=== PATIENT | male | born 1940 | race Caucasian/White ===

== ENCOUNTER 2020-12-17 08:15 | Observation (INO) | payer MEDICARE, OTHER, SELFPAY ==
[2020-12-16] VITALS (10 sets, daily range): BP systolic 122–136; BP diastolic 56–69; PULSE 70–78; RESP 12–16; TEMP 36.1–37.3; O2SAT 96–99; BMI 24.7
--- NOTE | 2020-12-16 12:29 | PM.PREOP ---
Pre-operative Note COVID-19 COVID-19 status: Negative Interval Note History & Physical reviewed/Exam performed by Physician: Yes Changes to H&P: No
[2020-12-16] MEDS: ACETAMINOPHEN 325 MG TABLET 975 MG PO (13:32)
[2020-12-16] MEDS: CELECOXIB 200 MG CAPSULE PO (13:33)
[2020-12-16 13:40] LABS: COVID19 -Nasal RAPID Negative (Negative)
[2020-12-16] MEDS: LACTATED RINGERS 1,000 ML 42 ML IV ×2 (14:10→18:03)
[2020-12-16] MEDS: VANCOMYCIN 1,000 MG/200 ML PIGGYBACK 200 MG IV (14:55)
--- NOTE | 2020-12-16 15:54 | PM.OP.1 ---
Operative Date/Time/Diagnoses Date of procedure: 12/16/20 Time of procedure: 15:55 Pre-op diagnosis: left total knee arthroplasty Post-op diagnosis: same Procedure & Clinicians Procedure: left total knee arthroplasty Same procedure as scheduled: Yes Indications: The patient has had progressively worsening left knee pain with radiographic changes consistent with arthritis. Non-operative management has failed and the patient has requested total knee replacement. The risks, benefits and alternatives to surgery were discussed with the patient prior to proceeding. Risks discussed included, but were not limited to, failure to relieve pain, stiffness, infection, nerve damage, deep venous thrombosis, pulmonary embolism, stroke, coma, heart attack, permanent paralysis and , as well as the potential need for eventual revision of the prosthetic. Surgeon: Kiley Gates Bench Lay Out Technician: Felix Welch Anesthesia Type: General and Spinal Operative Notes Findings: severe left knee osteoarthritis, good stability Closure Type: primary Specimen(s): none sent Prosthetic devices, grafts, tissues, transplants, or devices: [facility] 2 size 8 femur, size 7 tibia, +10 poly, 38 mm patella round Applied: drain(s) Estimated Blood Loss (mL): 250 Blood products transfused: none Tourniquet time (min): 112 Procedure in detail: The patient was seen in the pre-operative area, where the patient identified the left knee as the operative site and this was marked with my initials. The patient received pre-operative antibiotics, and was taken to the operating room and placed on the operative table in the supine position. After satisfactory anesthesia, a timers inspector out was performed. The left leg was encircled with a tourniquet about the proximal thigh, and the leg was prepared from the toes to the tourniquet with ChloroPrep in the usual fashion and draped through sterile drapes. The leg was elevated and exsanguinated with Eschmark bandage and the tourniquet inflated to [250] mmHg pressure. The knee was approached through an approximately 18 cm incision centered over the patella and carried into the knee through a medial parapatellar arthrotomy. A portion of the medial and lateral meniscus was resected. Soft tissue was carefully mobilized around the patella the patella was measured with a caliper. Bone was resected from the patella and the patellar height was reconstituted with up an appropriate sized patellar component. A cover was then placed on the patella. A small amount of additional medial and lateral meniscus was resected. The distal femur was cut at 5?. A [+2] cut was used. It looked like an appropriate distal femoral cut and the cut was made without difficulty. An extramedullary guide was used for the tibial cut. 10 mm was resected off the least affected side.The tibia was prepared. The rotation was assessed. The patient was placed in extension residual medial and lateral meniscus as well as any residual bone was carefully resected. 2 mm additional tibia was resected. Hemostasis was achieved especially posteriorly. Additional local was injected into the posterior capsule. The extension gap was assessed and additional releases for gap balancing were performed as necessary. It was checked with the gap [place] boatman. The femoral component was trial was placed and the notch was finished. The rotation was assessed and the appropriate size femoral guide was placed on the distal femur and finishing cuts were made. There is no evidence of notching. The anterior, posterior and chamfer cuts were then made. The posterior osteophytes and soft tissues were then removed. The posterior capsule was injected with part of a mixture of 60 ml 0.25% Marcaine mixed with 20 ml Exparel for post operative pain control. The remainder of this mixture was injected into the capsule and subcutaneous tissues during cement curing.l tibial and femoral components were then placed and the knee placed through a range of motion. Range of motion was [0-130], with good stability throughout the range. The trials were then removed, and the tibia was finished. The bone was prepared with pulsatile lavage, and dried with a sponge. Cement was applied and the final prosthetics placed. Excess cement was removed during and after cement curing. A brief Betadine soak was performed. After confirming there was no extruded cement posteriorly, the final tibial insert was placed. The knee was copiously irrigated and the tourniquet deflated. Hemostasis was obtained with the Bovie cautery. A drain was placed and brought out superolaterally. The capsule was closed with interrupted nonabsorbable suture. The subcutaneous layer was closed with barbed sutures, and the skin with a running 3-0 V-Lock suture and Surgical glue. An Aquacel Ag dressing was applied and the patient was taken to recovery having tolerated the procedure well. Complications: none Post-operative Condition: stable Disposition: Acute Care Plan for aftercare: The patient will be maintained on a standard total knee replacement protocol with weight bearing as tolerated. The patient will receive aspirin and sequential compression devices for DVT prophylaxis. The patient will be discharged home when safe for the home environment.
[2020-12-16] MEDS: CEFAZOLIN 2 GM/100 ML FROZ.PIGGY IV ×2 (15:55→23:59)
--- NOTE | 2020-12-16 16:00 | DI.RAD.S_ITS ---
PROCEDURE: XR KNEE LT 1TO2V INDICATIONS: LEFT TOTAL KNEE TECHNIQUE: Two views of the knee acquired. COMPARISON: [facility] EWELINA [facility], XR KNEE ARTHRITIC SERIES , 11/12/2020, 9:05. FINDINGS: Bones: Patient is status post left total knee joint arthroplasty. Hardware components are in expected positions. Visualized bony structures are intact. Soft tissues: Overlying postoperative changes are noted including a surgical drain. IMPRESSION: Status post left total knee arthroplasty with expected postoperative findings. Dictated by: Olvin Aden M.D. on 12/17/2020 at 9:30 Approved by: Olvin Aden M.D. on 12/17/2020 at 9:31
[2020-12-16] MEDS: TRANEXAMIC ACID 1,000 MG VIAL 1000 MG INJ ×2 (16:20→18:26)
--- NOTE | 2020-12-16 16:32 | SUR.OPER ---
Supine on padded OR bed. Pillow under head, arms secured on padded armboards <90 degree abduction. Safety belt across torso. Non-operative leg secured with tape over blanket over lower leg. Operative leg secured in DeMayo/Reynaldo positioner. Foam padded brace at thigh of operative leg.
[2020-12-16] MEDS: BUPIVACAINE LIPOSOME 266 MG/20 ML VIAL INJ (16:43)
[2020-12-16] MEDS: BUPIVACAINE 0.25% W/ EPI 30 ML VIAL 60 ML INJ (16:43)
[2020-12-16] MEDS: SODIUM CHLORIDE IRRIG SOLUTION 250 ML, POVIDONE-IODINE SPONGE STICKS 1 APPLIC IRR (16:44)
[2020-12-16] MEDS: OXYCODONE/ACETAMINOPHEN 5/325 TABLET 1 TAB PO (19:14)
[2020-12-16] MEDS: ONDANSETRON 4 MG/2 ML INJ IV (19:16)
[2020-12-16] MEDS: LACTATED RINGERS 1,000 ML 100 ML IV (20:03)
[2020-12-16] MEDS: ASPIRIN EC 81 MG TABLET PO (21:49)
[2020-12-16] MEDS: IBUPROFEN 400 MG TABLET PO ×2 (21:49→23:59)
[2020-12-16] MEDS: ACETAMINOPHEN 325 MG TABLET 650 MG PO (21:49)
[2020-12-16] MEDS: ATORVASTATIN 20 MG TABLET 40 MG PO (21:49)
[2020-12-16] MEDS: DOCUSATE 100 MG CAPSULE PO (21:49)
[2020-12-17 03:45] VITALS: BP 126/64; PULSE 70; RESP 14; TEMP 36.6; O2SAT 98
--- NOTE | 2020-12-17 04:24 | PC.NURSE ---
@345 - Pt assisted to bathroom, attempted to urinate, only voided approximately 25mL into urinal. Informed TY Villela of findings.
[2020-12-17] MEDS: IBUPROFEN 400 MG TABLET PO ×2 (05:05→08:36)
[2020-12-17 05:44] LABS: Hematocrit 38.1 % (41-53); Hemoglobin 12.9 g/dL (13.5-17.5)
--- NOTE | 2020-12-17 06:21 | PC.ADMIT ---
[address] [facility] Admission Note: The patient,Hussein Hollins,80 y/o, was given written information regarding hospital policies, unit procedures and contact persons. Patient's smoking status: Never smoker. Pt arrived to unit in no cardiovascular or respiratory distress, AOx4, able to make needs known, accompanied by . Pt reports numbness in LLE, receding as time wears on. Vital Signs - 8 hr 12/16/20 22:30 12/16/20 23:45 12/17/20 03:45 Temperature 97.8 F 97.6 F 97.8 F Pulse Rate 78 70 70 Respiratory Rate 16 14 14 Blood Pressure 124/59 L 122/60 126/64 Pulse Oximetry 98 97 98
--- NOTE | 2020-12-17 06:43 | PC.NURSE ---
Pt did not void 8 hr post-surgery, bladder scanned for ~840 mL. Straight cath'd for ~750 mL + ~100 mL urine remaining in bladder. Pt a difficult cath, but tolerates procedure. Pt understands importance of voiding on own and will continue to attempt to do so.
[2020-12-17] MEDS: CEFAZOLIN 2 GM/100 ML FROZ.PIGGY IV (07:06)
[2020-12-17 07:33] VITALS: BP 129/56; PULSE 75; RESP 18; TEMP 36.3; O2SAT 98
--- NOTE | 2020-12-17 07:35 | P.PN_ITS ---
Subjective Subjective Date Patient Seen: 12/17/20 Time Patient Seen: 07:35 Interval history: Pain is mild. Denies fever or chills. No nausea or vomiting. He has had difficulty voiding. Required a straight cath. Otherwise without complaints. Exam Vital Signs (past 8 hours): - 12/16/20 23:45 12/17/20 03:45 Temperature 97.6 F 97.8 F Pulse Rate 70 70 Respiratory Rate 14 14 Blood Pressure 122/60 126/64 Pulse Oximetry 97 98 Oxygen Delivery Method Room Air Oxygen Flow Rate 0 Narrative Exam Narrative: 80-year-old male resting comfortably in bed in no apparent distress. Dressing is clean, dry and intact. Motor functions intact distal bilateral lower extremities. Sensation grossly intact to light touch bilateral lower extremities. Both legs are warm and dry. Objective Labs Result Diagrams: 12/17/20 05:20 Labs: Laboratory Results - last 24 hr 12/16/20 12/17/20 12:38 05:20 Hgb 12.9 L Hct 38.1 L SARS-CoV-2 (PCR) Negative [facility] Medical History (Updated 12/09/20 @ 16:47 by Patsy Boyce RN) Benign prostatic hyperplasia Cancer of skin History of radiation therapy Hyperlipidemia Hypertension Osteoarthritis of left knee RBBB Sinus bradycardia Surgical History (Updated 12/09/20 @ 16:47 by Patsy Boyce RN) H/O bilateral cataract extraction (~2011) Status post appendectomy Family History Father Heart disease Social History household members: spouse Smoking Status: Never smoker alcohol intake: current Assessment & Plan Post-op Postoperative Procedures: Procedures Operation Date: 12/16/20 14:15 Actual Procedures Side Surgeon p Total Knee Arthroplasty Left Kiley Gates MD patient progressing as expected status post left total knee arthroplasty. Postop day 1. For max ordered. Straight cath per protocol for urinary retention. Mobilize with physical therapy. Likely discharge home today.
--- NOTE | 2020-12-17 08:19 | PC.NURSE ---
Addendum entered by Rochelle Martinez R.N. 12/17/20 12:00: Patient was able to void 50cc of brownish colored urine, with blood present. Patient may have trauma to the urethra as it was hard to in/out cath him last night. Will watch for more blood in the urine. Original Note: Assess- Patient is alert and oriented x3. He has an aquacel to his left knee with an rhianna wrap and hemovac drain. He states that he has feeling to his upper thigh and lower ankle and foot. He states that his knee is still numb. Patient had to be in/out cathed last night and had 850 in his bladder, they got 725cc out and stated that he was a difficult cath. We have started patient on flomax and this will be given right away. Patient lives on [address] and is hoping to be able to discharge later.
[2020-12-17] MEDS: ASPIRIN EC 81 MG TABLET PO (08:31)
[2020-12-17] MEDS: TAMSULOSIN 0.4 MG CAPSULE PO (08:31)
[2020-12-17] MEDS: MULTIVITAMIN 1 TABLET 1 TAB PO (08:31)
[2020-12-17] MEDS: DOCUSATE 100 MG CAPSULE PO (08:31)
[2020-12-17] MEDS: ACETAMINOPHEN 325 MG TABLET 650 MG PO (08:32)
[2020-12-17] MEDS: CHOLECALCIFEROL (VITAMIN D3) 1,000 UNIT TABLET 2000 UNIT PO (08:32)
[2020-12-17 09:48] VITALS: PULSE 69; RESP 16; O2SAT 97
--- NOTE | 2020-12-17 11:11 | PT.IIE ---
Current Diagnoses Unilateral primary osteoarthritis, left knee (12/16/20) Surgery Performed Operation Date: 12/16/20 14:15 Actual Procedures p Total Knee Arthroplasty(Left) - Kiley Gates MD Surgical History (Last Updated 12/09/20 @ 16:47 by Patsy Boyce, RN) H/O bilateral cataract extraction (~2011) Status post appendectomy Medical History (Last Updated 12/09/20 @ 16:47 by Patsy Boyce, RN) Benign prostatic hyperplasia Cancer of skin History of radiation therapy Hyperlipidemia Hypertension Osteoarthritis of left knee RBBB Sinus bradycardia Physical Therapy Inpatient Evaluation/Re-Eval M1 PT/OT-IP Prior Functional Status Start: 12/17/20 08:38 Freq: NEEDED Status: Active Protocol: Document 12/17/20 11:00 HH (Rec: 12/17/20 11:11 [email or web address]) Medical Review Prior Functional Status Medical History Reviewed Yes Diet/Fluid Consistency Regular Communication no deficits noted. [place] Mobility and Gait IND for home mobility but with 1 hiking stick for community mobility. Prolonged sitting tends to increase stiffness and increase pain with prolonged walking. Activities of Daily Living and IADL's IND for all ADLs and IADLs. Able to drive. Social History Household Members spouse Living Arrangements House Number of Floors (Floors) Two Floors Number of Stairs To Enter/Railing? 2 AICHA without rails to main floor. pt stays on main floor Home Environment Standard Height Toilet,Walk in Shower,Built-In Shower Seat Home Equipment Front Wheel Walker,Straight Cane,Raised Toilet Seat Without Armrests Employment Status Retired Additional Social History Comment pt lives with his in [place]. Expect to do outpatient PT there as well. is active and healthy who is able to assist as needed. M2 PT-IP Current Condition Start: 12/17/20 08:38 Freq: NEEDED Status: Active Protocol: Document 12/17/20 11:00 HH (Rec: 12/17/20 11:11 [email or web address]) Physical Therapy Current Condition Current Condition Evaluation Date 12/17/20 Treatment Diagnosis L TKA, difficulty in walking Onset Date 12/16/20 Weight Bearing Status Weight Bearing Status Weight Bear as Tolerated M3 PT-IP Subjective Start: 12/17/20 08:38 Freq: NEEDED Status: Active Protocol: Document 12/17/20 11:00 HH (Rec: 12/17/20 11:11 [email or web address]) Subjective Physical Therapy Visit Type Type Initial Evaluation Visit Start Time 09:03 Visit Stop Time 09:40 Total Visit Minutes 36 Notes attended session. Number of DEICER REPAIRER PNEUMATIC Visits 0 Physical Therapy Visit Comments Patient Comments Im feeling no pain at all Patient Goals To return home with . Therapy Pain Assessment Pain When Pain Assessed During Mobility Pain Present Pain Present Pain Reported Location left knee Intensity 2 Scale Used Numeric (0 - 10) Description Aching Pain Management Techniques Timing of Activity with Medications M4 PT-IP Mobility and Gait Start: 12/17/20 08:38 Freq: NEEDED Status: Active Protocol: Document 12/17/20 11:00 (Rec: 12/17/20 11:11 [email or web address]) PT-Bed Mobility Assessment Supine to Sit Supine to Sit Standby Assistance Scooting Scooting to Edge of Bed Standby Assistance PT-Transfer Assessment Sit to and From Stand Sit to and from Stand Contact Guard Assistance,Use of Upper Extremities Equipment Transfer Assistive Device Gait Belt,Front Wheeled Walker Orthotic/Prosthetic Devices or Brace: No Transfers Transfer Destination Bed,Chair Transfer Technique Stand Pivot Transfer Ability Level of Assist Contact Guard Assistance,Use of Upper Extremities Comments Mobility Comments pt was lying in bed upon PT arrival. AxO x4 and no pain reported. Pt agreed to mobilize with PT. He was able to sit up and pivot himself to R side EOB SBA. L knee ROM 5 - 120 degrees. then came in to attend session. Pt was able to stand up from EOB with even steps and FWW CGA. He then proceeded to amb to room. Pt initially needed cues for step to pattern but then progressed to step over pattern when he got out of his room. Min antalgic sign noted and he was steady and completed 180 ft with FWW CGA/ SBA. Pt also completed stair climbing 3 steps x 5 sets with SPC on R CGA. did SHOW OPERATIONS SUPERVISOR on L for last set and it was safely completed. Pt then returned to his room chair with FWW CGA/SBA. Call light placed within reach. Gait Assessment Gait Gait Assistance Required: Standby Assistance,Contact Guard Assist Distance (Feet) 180 Able to Maintain Weight Bearing Status Yes During Gait Assistive Devices Assistive Device Front Wheeled Walker Orthotic/Prosthetic Devices or Brace: No Gait Deviations General Gait Pattern Antalgic,Decreased Stride Length,Decreased Feet Clearance,Step-to Gait Factors Limiting Gait Function Factors Limiting Gait Function Decreased Activity Tolerance, Decreased Strength,Limited Range of Motion,Pain,Poor Balance Comments Gait Comments see mobility comments. Stair Climbing Assessment Evaluation Level of Assist On Stairs Contact Guard Assistance, Minimal Assistance Devices Stair Climbing Assistive Devices Straight Cane Technique/Endurance Stair Climbing Direction Ascend and Descend Stair Climbing Technique Step to Step Number of Steps Climbed 3 Query Text: Stair Climbing Set # Repetitions (reps) 5 Comments Stair Climbing Comments see mobility comments. PT-Balance Assessment Sitting Balance and Reactions Static Sitting Balance Ability Normal Dynamic Sitting Balance Ability Normal Standing Balance and Reactions Static Standing Balance Ability Good Dynamic Standing Balance Ability Good Device Used FWW M5 PT-IP Objective Assessments Start: 12/17/20 08:38 Freq: NEEDED Status: Active Protocol: Document 12/17/20 11:00 (Rec: 12/17/20 11:11 [email or web address]) Orientation Orientation/Cognition Level of Alertness Alert Orientation Name,Age,Birthday,Month,Date, Year,Day of Week,Place, Situation Language Function Ability No Deficits Noted,Hard of Hearing Safety Awareness Understands Safety Issues Memory Description No Deficits Noted Gross Range of Motion Upper Extremity ROM Assessment Within Functional Limits Lower Extremity ROM Assessment Left Impaired Impairments 5-120 AROM L knee Strength Upper Extremity Strength Assessment Within Functional Limits Lower Extremity Strength Assessment Left Impaired Knee 3+/5 Coordination Assessment Gross Coordination Gross Coordination WNL Sensation Assessment Sensation Gross Sensation WNL Muscle Tone Muscle Tone WNL Yes M6 PT-IP Treatment Start: 12/17/20 08:38 Freq: NEEDED Status: Active Protocol: Document 12/17/20 11:00 (Rec: 12/17/20 11:11 [email or web address]) Physical Therapy Treatment Exercises Exercises Ankle Pumps,Gluteal Sets,Quad Sets,Heel Slides Education Education Provided Precautions,Weight Bearing Status,Post-Op Packet,Safety M7 PT-IP Assessment and Plan Start: 12/17/20 08:38 Freq: NEEDED Status: Active Protocol: Document 12/17/20 11:00 (Rec: 12/17/20 11:11 [email or web address]) PT Summary Assessment and Plan Potential Rehabilitation Potential Excellent Status of Condition at Evaluation Stable Summary Impairments Pain,ROM,Strength,Balance,Bed Mobility,Transfers,Gait, Activity Tolerance Progress Towards Goals Safe For Discharge Assessment Summary pt is a 80yo active and healthy male s/p POD1 LTKA. Pt was IND for all mobility and ADLs/IADLs prior to surgery. He did use SPC for community mobility occasionally. Upon assessment, pt did very well and completed 180 ft amb with FWW and stair climbing with SPC CGA/ SHOW OPERATIONS SUPERVISOR on LUE. He and his both have good safety awareness. Pt is safe to be DC home with assistance and outpatient PT at this point Frequency of Treatment Frequency Of Treatment Discharge Recommendations To Nursing Amount of Assist Needed Standby Assistance,1 Person Assist Discharge Recommendations PT Discharge Recommendations Home with Assistance, Outpatient PT Transportation Needs at Discharge Private Vehicle
[2020-12-17 11:33] VITALS: BP 134/56; PULSE 68; RESP 18; TEMP 36.6; O2SAT 100
--- NOTE | 2020-12-17 11:53 | CM.DANOTE ---
DCP: Case received, EMR reviewed and met with patient. Introduced self and role. Was able to obtain information from patient regarding his baseline activity status prior to his surgery. DCP assessment completed with information currently available. Patient is an 80 year old male who admitted yesterday morning to the care of the orthopedic team. PCP: Dr. Parr. Payer: confirmed: [email or web address]. Patient came to the hospital via private vehicle for a surgical procedure. He had left total knee arthroplasty. Patient has history of osteoarthritis of the left knee. Met with patient in his room. He was sitting up in bed, he had not yet worked with [employer]. He is independent at his baseline, he resides on [address] with his spouse, Tiny. He has used no DME supplies except for a hiking stick. confirmed that his spouse will be able to assist him with any needs when he goes home. P: DCP to continue to follow. Patient should be able to go home when he is deemed medically stable and cleared by P.T. Nadiya Shah RN/Salesperson [employer]bags
--- NOTE | 2020-12-17 13:16 | PM.DS.1 ---
History of Present Illness History of Present Illness Date Patient Seen: 12/17/20 Time Patient Seen: 13:16 Chief complaint: LEFT TKA *OPB* Narrative: Patient did well with physical therapy. Patient is ready for discharge. No new complaints. Discharge Providers Provider Date of admission: 12/17/20 08:15 Discharge Date: 12/17/20 Primary care physician: Magdy Parr MD Consults: 12/16/20 12:37 Consult to Anesthesiology Routine Comment: Consulting Provider: Anesthesiologist Reason for consultation: Regional block for post operative pain control 12/16/20 19:43 Consult to Discharge Planning Routine Comment: Consult to Physical Therapy Evaluate & Treat Comment: Physician Instructions: postop TKA protocol Consult to Respiratory Therapy Evaluate & Treat Comment: Physician Instructions: Evaluate and treat Discharge provider: Curly Garcia PA-C Summary Hospital Course Discharge Diagnosis: Left knee osteoarthritis Urinary retention Hospital Course: eft total knee arthroplasty Post-op diagnosis: same Procedure & Clinicians Procedure: left total knee arthroplasty Same procedure as scheduled: Yes Indications: The patient has had progressively worsening left knee pain with radiographic changes consistent with arthritis. Non-operative management has failed and the patient has requested total knee replacement. The risks, benefits and alternatives to surgery were discussed with the patient prior to proceeding. Risks discussed included, but were not limited to, failure to relieve pain, stiffness, infection, nerve damage, deep venous thrombosis, pulmonary embolism, stroke, coma, heart attack, permanent paralysis and , as well as the potential need for eventual revision of the prosthetic. Surgeon: Kiley Gates Energy Technician: Felix Welch Anesthesia Type: General and Spinal Operative Notes Findings: severe left knee osteoarthritis, good stability Closure Type: primary Specimen(s): none sent Prosthetic devices, grafts, tissues, transplants, or devices: [employer] 2 size 8 femur, size 7 tibia, +10 poly, 38 mm patella round Applied: drain(s) Estimated Blood Loss (mL): 250 Blood products transfused: none Tourniquet time (min): 112 Patient admitted to the hospital for left total knee arthroplasty. Patient consented for the same. Patient taken operating room on December 16, 2020. Patient underwent left total knee arthroplasty. Patient back in his room recovering well as in stable condition. Patient discharged home in stable condition. Status at Discharge Cognitive/behavioral status at discharge: at baseline, oriented Functional status at discharge: uses cane/walker Overall status at discharge: patient is progressing back to baseline Time Spent with Patient Time spent: Less than 30 minutes Exam Vital Signs (past 8 hours): - 12/17/20 07:33 12/17/20 09:48 12/17/20 11:33 Temperature 97.4 F L 98 F Pulse Rate 75 69 68 Respiratory Rate 18 16 18 Blood Pressure 129/56 L 134/56 L Pulse Oximetry 98 97 100 Oxygen Delivery Method Room Air Oxygen Flow Rate 0 Narrative Exam Narrative: See progress note Objective Labs Result Diagrams: 12/17/20 05:20 Labs: Laboratory Results - last 24 hr 12/16/20 12/17/20 12:38 05:20 Hgb 12.9 L Hct 38.1 L SARS-CoV-2 (PCR) Negative [facility] Medical History (Updated 12/09/20 @ 16:47 by Patsy Boyce RN) Benign prostatic hyperplasia Cancer of skin History of radiation therapy Hyperlipidemia Hypertension Osteoarthritis of left knee RBBB Sinus bradycardia Surgical History (Updated 12/09/20 @ 16:47 by Patsy Boyce RN) H/O bilateral cataract extraction (~2011) Status post appendectomy Family History Father Heart disease Social History household members: spouse Smoking Status: Never smoker alcohol intake: current Discharge Assessment & Plan Assessment and Plan Assessment: Status post left total knee arthroplasty. Urinary retention requiring straight catheterization x1. Patient placed on Flomax was able to urinate. Patient will be placed on Flomax 1 tab daily for 3 days postop. Patient will need follow-up with Urology as an outpatient. Plan of Treatment: Discharge home in stable condition. Discharge Plan Discharge Plan Patient Disposition: Home Discharge orders & Medications Prescriptions: New tamsulosin [Flomax] 0.4 mg Capsule 0.4 mg PO DAILY Qty: 3 RF: 0 ibuprofen 400 mg Tablet 400 mg PO Q4HR Qty: 60 RF: 0 oxycodone 5 mg Tablet 5 mg PO Q3HR PRN (Reason: Pain, Moderate (4-6)) Qty: 40 RF: 0 Continued Fish Oil 1,000 mg PO DAILY Qty: 0 RF: 0 CA PANTOTHENATE/FOLIC ACID/VIT (MULTIVITAMIN) 1 tab PO QAM Qty: 0 RF: 0 CHOLECALCIFEROL (VITAMIN D3) (Vitamin D) 2,000 iu PO Q DAY Qty: 0 RF: 0 losartan 100 MG tablet 100 mg PO QDAY Qty: 90 RF: 1 atorvastatin [Lipitor] 40 MG tablet 40 mg PO HS Qty: 90 RF: 1 finasteride 5 MG tablet 5 mg PO QDAY Qty: 90 RF: 1 multivitamin Tablet 1 tab PO DAILY RF: 0 amlodipine 10 mg Tablet 10 mg PO DAILY RF: 0 fluticasone propionate 50 mcg/actuation [place],Suspension 2 spray INTRANASAL DAILY RF: 0 Follow up/Referrals: Kiley Gates MD [Physician] - (Two weeks) Magdy Parr MD [Primary Care Provider] - Diet/Activity/Treatments Diet: Diet as Tolerated Activity: Weight-bearing as tolerated Cold/Heat Therapy: Ice as needed Skin/Wound/Dressing Care Report to your healthcare provider any signs of infection, such as:: chills, fever, increased pain, unusual drainage and unusual redness Dressing: Keep clean and dry Visit Report/Discharge Packet Instructions: DI for Knee Replacement, How to Prevent Falls, DI for Prescription Opioid Use, Acetaminophen, Oxycodone, Ibuprofen Stand Alone Forms: Surgery Discharge Discharge Data Primary Care Provider: Magdy Parr Attending Provider: Kiley Gates
== END 2020-12-17 14:15 | disposition home or self-care (01) ==
LOC: OR 11:33 → AC 11:33
PROVIDERS: Admitting Provider Orthopaedic Surgery; Family Provider Family Medicine; PCP Family Medicine; Referring Provider Orthopaedic Surgery; Visit Provider Orthopaedic Surgery
PROC: 0SRD0JZ Replacement of Left Knee Joint with Synthetic Substitute, Open Approach (ICD-10-PCS; CPT 27447; principal; 2020-12-16 14:15)
DX: M17.12 Unilateral primary osteoarthritis, left knee (principal); I10 Essential (primary) hypertension; E78.5 Hyperlipidemia, unspecified; R33.9 Retention of urine, unspecified
CPT/HCPCS: 27447; 36415; 73560; 85014; 85018; 87635; 94762; 97116; 97161; 97530; C1776; C9803; G0378; C9290; J0690; J1100; J2250; J2274; J2405; J2704; J3010

== ENCOUNTER 2020-12-27 10:21 | Inpatient (IN) | payer MEDICARE, OTHER, SELFPAY ==
[2020-12-16 19:43] VITALS: BMI 24.7
[2020-12-27] VITALS (13 sets, daily range): BP systolic 120–158; BP diastolic 51–70; PULSE 77–108; RESP 14–24; TEMP 36.4–37.5; O2SAT 96–100; BMI 26.0
[2020-12-27 10:49] LABS: Add Manual Diff / Slide Review NO; Basophils Absolute Auto 0 /uL (0-100); Basophils Percent Auto 0.1 % (0-2); Eosinophils Absolute Auto 0 /uL (0-450); Hematocrit 21.4 % (41-53); Hemoglobin 7.5 g/dL (13.5-17.5); Lymphocytes Absolute Auto 800 /uL (1100-4500); Lymphocytes Percent Auto 4.8 % (25-40); Mean Corpuscular HGB Conc 34.9 % (30-36); Mean Corpuscular Hemoglobin 31.9 PG (26-34); Mean Corpuscular Volume 91.4 fL (80-100); Monocytes Absolute Auto 1100 /uL (0-900); Monocytes Percent Auto 6.2 % (3-14); Neutrophils Absolute Auto 15400 /uL (1500-7000); Neutrophils Percent Auto 88.9 % (50-75); Platelet Count 313 X10^3/uL (150-400); Red Blood Cell Count 2.34 X10^6/uL (4.5-5.9); Red Cell Distribution Width 13.8 % (11.6-14.8); White Blood Cell Count 17.3 X10^3/uL (4.5-11.0)
--- NOTE | 2020-12-27 10:52 | ED.GIBLEED ---
HPI - GI Bleed General Chief complaint: GI Bleed Stated complaint: CONSTIPATION SINCE SURGERY 12/16, WEAKNESS Time Seen by Provider: 12/27/20 10:26 Source: patient Mode of arrival: Ambulatory Limitations: no limitations History of Present Illness HPI Narrative: Patient is a 80-year-old male had a recent left total knee arthroplasty presenting today with black stools. He states he actually has not needed to take pain medication except for Tylenol and ibuprofen. He has not had a bowel movement since surgery he has been taking MiraLax and Metamucil daily he finally had a bowel movement this morning but a black and tarry. He denies any abdominal pain nausea or vomiting. He does have a history of hemorrhoids but this was not bright red blood. He does feel little weak he was noticing some issues yesterday as well but it is just generalized weakness. This morning he is having some shortness of breath with exertion along with some dizziness and lightheadedness. MD complaint: gross hematochezia Related Data Home Medications Medication Instructions Recorded Confirmed Vitamin D3 2,000 iu PO Q DAY #0 02/12/12 12/27/20 omega-3 fatty acids [Fish Oil] 1,000 mg PO DAILY #0 02/12/12 12/27/20 fluticasone propionate 2 spray INTRANASAL DAILY 12/09/20 12/27/20 multivitamin 1 tab PO DAILY 12/09/20 12/27/20 doxazosin 2 mg PO BEDTIME 12/27/20 12/27/20 Previous Rx's Medication Instructions Recorded losartan 100 mg PO QDAY #90 tab 11/30/16 atorvastatin [Lipitor] 40 mg PO HS #90 tab 05/16/17 finasteride 5 mg PO QDAY #90 tab 05/16/17 ibuprofen 400 mg PO Q4HR #60 tab 12/17/20 oxycodone 5 mg PO Q3HR PRN #40 tab 12/17/20 Allergies Allergy/AdvReac Type Severity Reaction Status Date / Time No Known Drug Allergies Allergy Verified 12/16/20 13:13 Review of Systems Review of Systems ROS Unobtainable: All systems reviewed & are unremarkable except as noted in HPI and below Constitutional Constitutional: Denies chills, Denies fever(s), Denies lethargy and Reports weakness ENT Ears, Nose, Mouth, and Throat: Denies dizziness Cardiovascular Cardiovascular: Denies chest pain, Denies syncope, Denies irregular heart rhythm, Denies lightheadedness, Denies palpitations, Denies dyspnea, Reports dyspnea on exertion and Denies orthopnea Respiratory Respiratory: Denies cough, Denies dyspnea, Reports dyspnea on exertion and Denies wheezing Gastrointestinal Gastrointestinal: Reports as per HPI Musculoskeletal Musculoskeletal: Denies back pain and Denies myalgias Integumentary/Breasts Skin/Breast: Denies pruritus, Denies erythema, Denies rash and Denies wounds Neurologic Neurologic: Denies dizziness, Denies syncope and Reports weakness Endocrine Endocrine: Denies palpitations Allergic/Immunologic Allergic/Immunologic: Denies wheezing Patient History Medical History Benign prostatic hyperplasia Cancer of skin History of radiation therapy Hyperlipidemia Hypertension Osteoarthritis of left knee RBBB Sinus bradycardia Surgical History H/O bilateral cataract extraction (~2011) Status post appendectomy Family History Father Heart disease Social History household members: spouse Smoking Status: Never smoker alcohol intake: current Smoking Status: Never smoker alcohol intake frequency: 0-2 drinks per day Substance Use Type: does not use Exam Initial Vital Signs Initial Vital Signs: Vital Signs Temperature 98.3 F 12/27/20 10:25 Pulse Rate 108 H 12/27/20 10:25 Respiratory Rate 14 12/27/20 10:25 Blood Pressure 158/70 H 12/27/20 10:25 Pulse Oximetry 99 12/27/20 10:25 GENERAL: Alert pleasant 80-year-old male slightly pale and in no acute distress. HEENT: Head atraumatic,EOMI, pupils reactive, face symmetric, moist mucous membranes CARDIOVASCULAR: Regular rate and rhythm without murmurs, rubs or gallops. RESPIRATORY: Breath sounds equal bilaterally, no wheezes rales or rhonchi. ABDOMEN: Soft, nontender. Normoactive bowel sounds all 4 quadrants. No guarding or rebound. RECTAL: Hemoccult positive grossly positive dark stool EXTREMITIES: Normal range of motion, no clubbing or edema. Neurovascularly intact NEUROLOGICAL: Alert and oriented x4.Normal gait and speech. Cranial nerves II through XII grossly intact. SKIN: Warm, dry, no laceration, no petechiae, no rashes or lesions. Course Orders Ordered: ED Orders 12/27/20 10:30 Complete Blood Count AUTO DIFF Stat Comprehensive Metabolic Panel Stat Lactate (Lactic Acid) Stat Lipase Stat Partial Thromboplastin Time Stat Prothrombin Time INR Stat Troponin & CK Cardiac Panel Stat 12/27/20 11:00 COVID19 - ADMIT ([facility] swab/PCR) Stat 12/27/20 11:35 Packed Cells Stat Type and Screen Stat 12/27/20 12:16 XR chest 1V Urgent 12/28/20 Basic Metabolic Panel Routine Complete Blood Count AUTO DIFF Routine Pantoprazole Sodium 80 mg/ (Sodium Chloride) 100 mls @ 10 mls/hr IV CONT HEMA Last Admin: 12/27/20 13:11 Dose: 8 mg/hr, 10 mls/hr Documented by: BHARATI Discontinued Medications Pantoprazole Sodium (Pantoprazole 40 Mg Vial) 40 mg IV NOW ONE Stop: 12/27/20 10:50 Last Admin: 12/27/20 10:58 Dose: 40 mg Documented by: DIANNA Vital Signs Vital signs: Vital Signs - 8 hr 12/27/20 10:25 12/27/20 11:55 12/27/20 12:00 Temperature 98.3 F Pulse Rate 108 H 81 86 Respiratory Rate 14 17 24 Blood Pressure 158/70 H Pulse Oximetry 99 99 99 12/27/20 12:15 Temperature 98.2 F Pulse Rate 101 H Respiratory Rate 16 Blood Pressure 122/55 L Pulse Oximetry 99 MDM - GI Bleed Lab Data Attestation: I reviewed the patient's lab results. Result diagrams: 12/27/20 10:30 12/27/20 10:30 Labs: Lab Results 12/27/20 12/27/20 12/27/20 Range/Units 10:30 10:30 10:30 WBC 17.3 H (4.5-11.0) X10^3/uL RBC 2.34 L (4.5-5.9) X10^6/uL Hgb 7.5 L (13.5-17.5) g/dL Hct 21.4 L (41-53) % MCV 91.4 (80-100) fL MCH 31.9 (26-34) PG MCHC 34.9 (30-36) % RDW 13.8 (11.6-14.8) % Plt Count 313 (150-400) X10^3/uL Neut % (Auto) 88.9 H (50-75) % Lymph % (Auto) 4.8 L (25-40) % Johnston % (Auto) 6.2 (3-14) % Eos % (Auto) 0.0 L (2-4) % Baso % (Auto) 0.1 (0-2) % Neut # (Auto) 58467 H (9351-0976) /uL Lymph # (Auto) 800 L (8104-9981) /uL Johnston # (Auto) 1100 H (0-900) /uL Eos # (Auto) 0 (0-450) /uL Baso # (Auto) 0 (0-100) /uL PT (10.1-12.7) SECONDS INR (0.9-1.3) APTT (26.4-36.2) SECONDS Sodium (137-145) mmol/L Potassium (3.4-5.1) mmol/L Chloride (98-107) mmol/L Carbon Dioxide (22-32) mmol/L BUN (9-20) mg/dL Creatinine (0.66-1.25) mg/dL Estimated GFR (>60) mL/min BUN/Creatinine Ratio (6-22) Glucose (80-110) mg/dL Lactate 1.1 (0.7-2.1) mmol/L Calcium (8.4-10.2) mg/dL Total Bilirubin (0.2-1.3) mg/dL AST (17-59) IU/L ALT (<50) IU/L Alkaline Phosphatase (38-126) U/L Total Creatine Kinase (55-170) U/L CK-MB (CK-2) CK-MB (CK-2) Rel Index Troponin I (0.01-0.034) ng/mL Total Protein (6.3-8.2) g/dL Albumin (3.5-5.0) g/dL Globulin (1.7-4.1) g/dL Albumin/Globulin Ratio (1.0-2.8) Lipase 84 (23-300) U/L SARS-CoV-2 (PCR) (Negative) Blood Type Antibody Screen Crossmatch 12/27/20 12/27/20 12/27/20 Range/Units 10:30 10:30 10:30 WBC (4.5-11.0) X10^3/uL RBC (4.5-5.9) X10^6/uL Hgb (13.5-17.5) g/dL Hct (41-53) % MCV (80-100) fL MCH (26-34) PG MCHC (30-36) % RDW (11.6-14.8) % Plt Count (150-400) X10^3/uL Neut % (Auto) (50-75) % Lymph % (Auto) (25-40) % Johnston % (Auto) (3-14) % Eos % (Auto) (2-4) % Baso % (Auto) (0-2) % Neut # (Auto) (2596-8954) /uL Lymph # (Auto) (4285-6939) /uL Johnston # (Auto) (0-900) /uL Eos # (Auto) (0-450) /uL Baso # (Auto) (0-100) /uL PT 13.3 H (10.1-12.7) SECONDS INR 1.2 (0.9-1.3) APTT 26 L (26.4-36.2) SECONDS Sodium 131 L (137-145) mmol/L Potassium 4.5 (3.4-5.1) mmol/L Chloride 104 (98-107) mmol/L Carbon Dioxide 20 L (22-32) mmol/L BUN 42 H (9-20) mg/dL Creatinine 1.02 (0.66-1.25) mg/dL Estimated GFR > 60.0 (>60) mL/min BUN/Creatinine Ratio 41.2 H (6-22) Glucose 122 H (80-110) mg/dL Lactate (0.7-2.1) mmol/L Calcium 8.9 (8.4-10.2) mg/dL Total Bilirubin 0.3 (0.2-1.3) mg/dL AST 48 (17-59) IU/L ALT 48 (<50) IU/L Alkaline Phosphatase 70 (38-126) U/L Total Creatine Kinase 80 (55-170) U/L CK-MB (CK-2) TNP CK-MB (CK-2) Rel Index TNP Troponin I 0.015 (0.01-0.034) ng/mL Total Protein 5.9 L (6.3-8.2) g/dL Albumin 3.3 L (3.5-5.0) g/dL Globulin 2.6 (1.7-4.1) g/dL Albumin/Globulin Ratio 1.3 (1.0-2.8) Lipase (23-300) U/L SARS-CoV-2 (PCR) (Negative) Blood Type Antibody Screen Crossmatch 12/27/20 12/27/20 Range/Units 11:00 11:35 WBC (4.5-11.0) X10^3/uL RBC (4.5-5.9) X10^6/uL Hgb (13.5-17.5) g/dL Hct (41-53) % MCV (80-100) fL MCH (26-34) PG MCHC (30-36) % RDW (11.6-14.8) % Plt Count (150-400) X10^3/uL Neut % (Auto) (50-75) % Lymph % (Auto) (25-40) % Johnston % (Auto) (3-14) % Eos % (Auto) (2-4) % Baso % (Auto) (0-2) % Neut # (Auto) (3807-5963) /uL Lymph # (Auto) (8221-9709) /uL Johnston # (Auto) (0-900) /uL Eos # (Auto) (0-450) /uL Baso # (Auto) (0-100) /uL PT (10.1-12.7) SECONDS INR (0.9-1.3) APTT (26.4-36.2) SECONDS Sodium (137-145) mmol/L Potassium (3.4-5.1) mmol/L Chloride (98-107) mmol/L Carbon Dioxide (22-32) mmol/L BUN (9-20) mg/dL Creatinine (0.66-1.25) mg/dL Estimated GFR (>60) mL/min BUN/Creatinine Ratio (6-22) Glucose (80-110) mg/dL Lactate (0.7-2.1) mmol/L Calcium (8.4-10.2) mg/dL Total Bilirubin (0.2-1.3) mg/dL AST (17-59) IU/L ALT (<50) IU/L Alkaline Phosphatase (38-126) U/L Total Creatine Kinase (55-170) U/L CK-MB (CK-2) CK-MB (CK-2) Rel Index Troponin I (0.01-0.034) ng/mL Total Protein (6.3-8.2) g/dL Albumin (3.5-5.0) g/dL Globulin (1.7-4.1) g/dL Albumin/Globulin Ratio (1.0-2.8) Lipase (23-300) U/L SARS-CoV-2 (PCR) Negative (Negative) Blood Type O Positive Antibody Screen Negative Crossmatch See Detail Imaging Data Chest x-ray: Radiologist's Impression: PROCEDURE: XR CHEST 2V INDICATIONS: weakness hx smoking TECHNIQUE: 2 views of the chest were acquired. COMPARISON: None. FINDINGS: Surgical changes and devices: None. Lungs and pleura: Lungs are clear. No pleural effusions or pneumothorax. The lungs are hyperexpanded, with flattening of the hemidiaphragms seen. Mediastinum: Mediastinal contours are normal. Heart size is normal. Bones and chest wall: No suspicious bony abnormalities. Age-appropriate bony degenerative changes are seen. Soft tissues appear unremarkable. IMPRESSION: Hyperexpanded lungs, without an acute cardiopulmonary process identified. Dictated by: Jah Brenner M.D. on 12/27/2020 at 9:12 MDM Narrative Medical decision making narrative: The patient is obviously guaiac positive with dark stool concern for upper GI bleed secondary to NSAIDs. Slightly tachycardic but otherwise hemodynamically stable. Found to be and knee karoline with hemoglobin of 7.5 down from previous of 12.9, 10 days prior. [id number]-Dr. shaffer surgery updated patient's symptoms test results happy to consult [id number]- Dr Stahl, the hospitalist in the ED to see and evaluate patient and happily accepts. Discharge Plan Departure Patient Disposition: Admitted as Observation Clinical Impression: Acute GI bleeding Admit Date/Time: 12/27/20 12:27 Admit Provider: Ty Stahl
[2020-12-27 10:53] LABS: INR 1.2 (0.9-1.3); Prothrombin Time 13.3 SECONDS (10.1-12.7)
[2020-12-27 10:55] LABS: Lactate (Lactic Acid) 1.1 mmol/L (0.7-2.1); Lipase 84 U/L (23-300); PTT Partial Thromboplastin Tim 26 SECONDS (26.4-36.2)
[2020-12-27 10:57] LABS: Alanine Aminotransferase 48 IU/L (<50); Albumin 3.3 g/dL (3.5-5.0); Albumin Globulin Ratio 1.3 (1.0-2.8); Alkaline Phosphatase 70 U/L (38-126); Aspartate Aminotransferase 48 IU/L (17-59); BUN Creatinine Ratio 41.2 (6-22); Bilirubin Total 0.3 mg/dL (0.2-1.3); Blood Urea Nitrogen 42 mg/dL (9-20); Calcium 8.9 mg/dL (8.4-10.2); Carbon Dioxide 20 mmol/L (22-32); Chloride 104 mmol/L (98-107); Estimated Glomerular Filt Rate > 60.0 mL/min (>60); Globulin 2.6 g/dL (1.7-4.1); Glucose 122 mg/dL (80-110); HEMOLYSIS < 15 (0-50); Potassium 4.5 mmol/L (3.4-5.1); Sodium 131 mmol/L (137-145); Total Protein 5.9 g/dL (6.3-8.2)
[2020-12-27] MEDS: PANTOPRAZOLE 40 MG VIAL IV (10:58)
--- NOTE | 2020-12-27 11:15 | PC.NURSE ---
second iv placed left ac, type and screen drawn form line when started.
--- NOTE | 2020-12-27 11:20 | PC.NURSE ---
Provider performed guiac stool occult blood exam without this nurse present. Reported to this nurse very positive.
[2020-12-27 11:35] LABS: Creatine Kinase 80 U/L (55-170)
[2020-12-27 11:48] LABS: Troponin I 0.015 ng/mL (0.01-0.034)
[2020-12-27 12:15] LABS: COVID19 - ADMIT (NP swab/PCR) Negative (Negative)
--- NOTE | 2020-12-27 12:16 | DI.RAD.S_ITS ---
PROCEDURE: XR CHEST 1V INDICATIONS: Short of breath TECHNIQUE: One view of the chest was acquired. COMPARISON: [facility], , CHEST 2 VIEW, 02/14/2012, 22:34. FINDINGS: Surgical changes and devices: None. Lungs and pleura: Lungs are clear. No pleural effusions or pneumothorax. Mediastinum: Mediastinal contours appear normal. Heart size is normal. Bones and chest wall: No suspicious bony lesions. Overlying soft tissues appear unremarkable. IMPRESSION: Portable chest within normal limits. If there is clinical concern for a developing pulmonary process, a short-term followup chest series (with PA and lateral views, performed in deep inspiration) is suggested for further evaluation. Dictated by: Jah Brenner M.D. on 12/27/2020 at 11:34 Approved by: Jah Brenner M.D. on 12/27/2020 at 11:35
[2020-12-27] MEDS: PANTOPRAZOLE 80 MG in SODIUM CHLORIDE 0.9% 100 ML 10 ML IV ×2 (13:11→23:29)
--- NOTE | 2020-12-27 14:09 | PM.HP.1 ---
History of Present Illness History of Present Illness Date Patient Seen: 12/27/20 Time Patient Seen: 11:13 Chief complaint: CONSTIPATION SINCE SURGERY 12/16, WEAKNESS Narrative: Mr. Hollins is an 80M with PMH of HTN, and recent left TKA who is coming in today with blood in his stool. He notes that he did well with surgery and was discharged on 12/17. He has been taking 400mg 3-4x/day since discharge for pain, and two baby aspirin for prophylaxis after his surgery. He has not been taking these with food. He began developing some burning discomfort in his stomach as if he had upset stomach. He then noticed he was developing some generalized weakness and fatigue. He initially had constipation after surgery but then developed overnight black mushy stool with some dark red blood. He called EMS, he has since had two similar stools that were slightly formed that were still black and with dark blood. He did develop some slight shortness of breath with exertion. He had no chest pain. He did have dizziness. He had no fevers/chills, cough, dysuria. Because of this he presented to the ER. His vitals were notable for initially mild tachycardia in the 100s-110s. Blood pressure normal. Labs were done and were notable for wbc of 17.3, hgb 7.5 from 12.9 on 12/17, plts 313, INR 1.2. Na 131, creatinine 1.02. Rectal was noted for positive hemoccult dark stool. He was ordered for IV protonix, and ordered for transfusion of 2U PRBC. He was admitted for further treatment. Patient History Medical History Benign prostatic hyperplasia Cancer of skin History of radiation therapy Hyperlipidemia Hypertension Osteoarthritis of left knee RBBB Sinus bradycardia Surgical History H/O bilateral cataract extraction (~2011) Status post appendectomy Family & Social History Family History Father Heart disease Social History: household members spouse Prior Living Arrangements House Safety & Behavioral: Feels Safe in Current Yes Environment Been Physically Hurt or No Threatened By a Person Suicidal Ideation Description None Suicide Plan Description No Plan Tobacco & Substance use: Smoking Status Never smoker alcohol intake current alcohol intake frequency 0-2 drinks per day Substance Use Type does not use Meds Home Medications and Allergies Home Medications Medication Instructions Recorded Confirmed Type Vitamin D3 2,000 iu PO Q DAY #0 02/12/12 12/27/20 History omega-3 fatty acids [Fish Oil] 1,000 mg PO DAILY #0 02/12/12 12/27/20 History losartan 100 mg PO QDAY #90 tab 11/30/16 12/27/20 Rx atorvastatin [Lipitor] 40 mg PO HS #90 tab 05/16/17 12/27/20 Rx finasteride 5 mg PO QDAY #90 tab 05/16/17 12/27/20 Rx fluticasone propionate 2 spray INTRANASAL DAILY 12/09/20 12/27/20 History multivitamin 1 tab PO DAILY 12/09/20 12/27/20 History ibuprofen 400 mg PO Q4HR #60 tab 12/17/20 12/27/20 Rx oxycodone 5 mg PO Q3HR PRN #40 tab 12/17/20 12/27/20 Rx doxazosin 2 mg PO BEDTIME 12/27/20 12/27/20 History Allergies Allergy/AdvReac Type Severity Reaction Status Date / Time No Known Drug Allergies Allergy Verified 12/16/20 13:13 Review of Systems Review of Systems Narrative: 14 systems reviewed and negative aside from what is noted in HPI Exam Vital Signs (past 8 hours): - 12/27/20 10:25 12/27/20 11:55 12/27/20 12:00 Temperature 98.3 F Pulse Rate 108 H 81 86 Respiratory Rate 14 17 24 Blood Pressure 158/70 H Pulse Oximetry 99 99 99 Oxygen Delivery Method Room Air Narrative Exam Narrative: GEN: pale, fatigued, no acute distress HEENT: pale conjunctiva, moist mucous membranes, no JVD CV: regular rate and rhythm with no murmurs PULM: clear bilaterally, no wheezes, rhonchi, rales ABD: soft, mild tenderness epigastric, no rebound/guarding, no organomegaly, normal bowel sounds EXT: left knee appears well healed, 1-2+ edema in left leg SKIN: no rashes noted NEURO: AAOx3, moving all extremities PSYCH: cooperative, pleasant mood Objective Labs Result Diagrams: 12/27/20 10:30 12/27/20 10:30 Labs: Laboratory Results - last 24 hr 12/27/20 12/27/20 12/27/20 10:30 10:30 10:30 WBC 17.3 H RBC 2.34 L Hgb 7.5 L Hct 21.4 L MCV 91.4 MCH 31.9 MCHC 34.9 RDW 13.8 Plt Count 313 Neut % (Auto) 88.9 H Lymph % (Auto) 4.8 L Charles % (Auto) 6.2 Eos % (Auto) 0.0 L Baso % (Auto) 0.1 Neut # (Auto) 61960 H Lymph # (Auto) 800 L Charles # (Auto) 1100 H Eos # (Auto) 0 Baso # (Auto) 0 PT INR APTT Sodium Potassium Chloride Carbon Dioxide BUN Creatinine Estimated GFR BUN/Creatinine Ratio Glucose Lactate 1.1 Calcium Total Bilirubin AST ALT Alkaline Phosphatase Total Creatine Kinase CK-MB (CK-2) CK-MB (CK-2) Rel Index Troponin I Total Protein Albumin Globulin Albumin/Globulin Ratio Lipase 84 SARS-CoV-2 (PCR) Blood Type Antibody Screen Crossmatch 12/27/20 12/27/20 12/27/20 10:30 10:30 10:30 WBC RBC Hgb Hct MCV MCH MCHC RDW Plt Count Neut % (Auto) Lymph % (Auto) Charles % (Auto) Eos % (Auto) Baso % (Auto) Neut # (Auto) Lymph # (Auto) Charles # (Auto) Eos # (Auto) Baso # (Auto) PT 13.3 H INR 1.2 APTT 26 L Sodium 131 L Potassium 4.5 Chloride 104 Carbon Dioxide 20 L BUN 42 H Creatinine 1.02 Estimated GFR > 60.0 BUN/Creatinine Ratio 41.2 H Glucose 122 H Lactate Calcium 8.9 Total Bilirubin 0.3 AST 48 ALT 48 Alkaline Phosphatase 70 Total Creatine Kinase 80 CK-MB (CK-2) TNP CK-MB (CK-2) Rel Index TNP Troponin I 0.015 Total Protein 5.9 L Albumin 3.3 L Globulin 2.6 Albumin/Globulin Ratio 1.3 Lipase SARS-CoV-2 (PCR) Blood Type Antibody Screen Crossmatch 12/27/20 12/27/20 11:00 11:35 WBC RBC Hgb Hct MCV MCH MCHC RDW Plt Count Neut % (Auto) Lymph % (Auto) Charles % (Auto) Eos % (Auto) Baso % (Auto) Neut # (Auto) Lymph # (Auto) Charles # (Auto) Eos # (Auto) Baso # (Auto) PT INR APTT Sodium Potassium Chloride Carbon Dioxide BUN Creatinine Estimated GFR BUN/Creatinine Ratio Glucose Lactate Calcium Total Bilirubin AST ALT Alkaline Phosphatase Total Creatine Kinase CK-MB (CK-2) CK-MB (CK-2) Rel Index Troponin I Total Protein Albumin Globulin Albumin/Globulin Ratio Lipase SARS-CoV-2 (PCR) Negative Blood Type O Positive Antibody Screen Negative Crossmatch See Detail Assessment & Plan Assessment & Plan narrative: 1. Acute Symptomatic anemia from GI Bleed -concern for possible upper bleed from gastritis or ulcers given taking nsaids and aspirin and some epigastric discomfort -on arrival hgb 7.5 from 12.9, which was 10 days earlier -hemodynamically stable on arrival with normal blood pressure and heart rate -additionally has elevated BUN consistent with possible upper GI bleed -was given IV protonix in ER -will continue on protonix drip -has 2 IVs currently -ordered for 2U PRBC -clears today, NPO after midnight for consideration of EGD -surgery consult for possible EGD 2. Leukocytosis -no infectious symtpoms currently with no cough, no dysuria, leg does not appear infected -chest xray shows no infection -ua pending -suspect this is leukocytosis from stress response from bleed 3. Hypertension -hold anti-hypertensives for now given bleed 4. BPH -will hold oral meds for now and restart when patient hemoglobin and bleeding confirmed resolved 5. Hyperlipidemia -holding for today IVF: none, as getting blood DVT ppx: SCDs Diet: clear, npo after midnight Code: Full, proxy is spouse Tiny Mccall VTE Deep Vein Thrombosis/Pulmonary Embolism Present on Admission: No MIPS - Admit I confirm the patient?s Advance Care Plan is present, Code status is documented, Surrogate decision maker is in patient?s record [If Yes, STOP here]: Yes
--- NOTE | 2020-12-27 14:49 | PC.ADMIT ---
122 Evelin Lomax Admission Note: Safe hand off from [facility]. Patient arrived to floor via wheelchair and safely ambulated to bedside. Patient stated he did have a syncopal episode, so he is a high fall risk. VSS, HR 100, afebrile. Patient is resting comfortably. Call light is within reach. Bed is low and locked. Bed alarm is active. The patient,Hussein Hollins,80 y/o, was given written information regarding hospital policies, unit procedures and contact persons. Patient's smoking status: Never smoker. Vital Signs - 8 hr 12/27/20 10:25 12/27/20 11:55 12/27/20 12:00 Temperature 98.3 F Pulse Rate 108 H 81 86 Respiratory Rate 14 17 24 Blood Pressure 158/70 H Pulse Oximetry 99 99 99 12/27/20 12:15 12/27/20 14:16 12/27/20 14:32 Temperature 98.2 F 99.5 F 99.2 F Pulse Rate 101 H 85 79 Respiratory Rate 16 16 16 Blood Pressure 122/55 L 120/51 L 139/54 L Pulse Oximetry 99
[2020-12-27 15:36] LABS: Bacteria Urine None Seen; RBC Urine None Seen (0-5/HPF); WBC Urine None Seen (0-5/HPF)
[2020-12-27 15:50] LABS: Appearance Urine UA CLEAR; Bilirubin Urine UA NEGATIVE (NEGATIVE); Color Urine UA YELLOW; Glucose Urine UA NEGATIVE (Negative); Ketones Urine UA NEGATIVE (NEGATIVE); Leukocyte Esterase Urine UA NEGATIVE (NEGATIVE); Nitrite Urine UA NEGATIVE (Negative); Occult Blood Urine UA NEGATIVE (Negative); Protein Urine UA NEGATIVE (Negative); Urobilinogen Urine UA 0.2 E.U./dL (0.2)
[2020-12-27 15:58] LABS: Culture Indicated Urine Cult Not Indicated; Urine Comments Microscopic Normal
[2020-12-27 19:51] LABS: Hematocrit 23.8 % (41-53); Hemoglobin 8.3 g/dL (13.5-17.5); Mean Corpuscular HGB Conc 34.9 % (30-36); Mean Corpuscular Hemoglobin 30.7 PG (26-34); Mean Corpuscular Volume 87.8 fL (80-100); Platelet Count 238 X10^3/uL (150-400); Red Blood Cell Count 2.71 X10^6/uL (4.5-5.9); Red Cell Distribution Width 15.7 % (11.6-14.8); White Blood Cell Count 12.4 X10^3/uL (4.5-11.0)
[2020-12-28] VITALS (7 sets, daily range): BP systolic 120–145; BP diastolic 53–59; PULSE 69–79; RESP 15–18; TEMP 36.3–37.6; O2SAT 95–99
--- NOTE | 2020-12-28 | PATH_ITS ---
[facility] Accession Number: [id number] . 01 Material submitted: . duodenum - DUODENUM . 02 Diagnosis: Duodenum, Biopsy: Duodenal mucosa with prominent Colton's glands and patchy gastric surface foveolar metaplasia, consistent with peptic duodenitis. Negative for active inflammation or intraepithelial lymphocytosis. Negative for dysplasia and malignancy. MRV 01/05/2021 1220 Local . 02 Electronically signed: . Anuja Maldonado MD, Pathologist NPI- [id number] . 01 Gross description: . The specimen is received in formalin labeled duodenal biopsy and consists of two terry fragments of soft tissue, measuring 0.4 x 0.3 x 0.2 cm in aggregate. The specimen is entirely submitted in cassette A1. ([id number]) /[facility] 12/30/2020 1605 Local . 02 Pathologist provided ICD-10: R10.9 . 02 CPT . 142260 Performed at: 01 [facility] [address], [place], [place] [id number] MD Faustino Kaiser MD Phone: [phone] Performed at: 02 [facility] [address] [place], [place] [id number] MD Anuja Maldonado MD Phone: [phone]
[2020-12-28 05:08] LABS: Add Manual Diff / Slide Review NO; Basophils Absolute Auto 0 /uL (0-100); Basophils Percent Auto 0.4 % (0-2); Eosinophils Absolute Auto 0 /uL (0-450); Eosinophils Percent Auto 0.5 % (2-4); Hematocrit 23.3 % (41-53); Hemoglobin 8.2 g/dL (13.5-17.5); Lymphocytes Absolute Auto 1100 /uL (1100-4500); Lymphocytes Percent Auto 12.7 % (25-40); Mean Corpuscular HGB Conc 35.2 % (30-36); Mean Corpuscular Hemoglobin 31.1 PG (26-34); Mean Corpuscular Volume 88.5 fL (80-100); Monocytes Absolute Auto 900 /uL (0-900); Monocytes Percent Auto 9.5 % (3-14); Neutrophils Absolute Auto 6900 /uL (1500-7000); Neutrophils Percent Auto 76.9 % (50-75); Platelet Count 243 X10^3/uL (150-400); Red Blood Cell Count 2.63 X10^6/uL (4.5-5.9); Red Cell Distribution Width 16.1 % (11.6-14.8)
[2020-12-28 05:17] LABS: BUN Creatinine Ratio 26.6 (6-22); Blood Urea Nitrogen 25 mg/dL (9-20); Calcium 8.4 mg/dL (8.4-10.2); Carbon Dioxide 22 mmol/L (22-32); Chloride 108 mmol/L (98-107); Estimated Glomerular Filt Rate > 60.0 mL/min (>60); Glucose 102 mg/dL (80-110); HEMOLYSIS < 15 (0-50); Potassium 3.9 mmol/L (3.4-5.1); Sodium 133 mmol/L (137-145)
[2020-12-28] MEDS: LACTATED RINGERS 1,000 ML 42 ML IV (08:46)
--- NOTE | 2020-12-28 08:49 | SUR.PREOP ---
Patient brought to the department by OR staff. In a holding pattern pending communication - if procedure will be done or not. Pt comfortable, denies any needs, pain, nausea; declines warm blankets. Call light given. Alert and oriented.
--- NOTE | 2020-12-28 08:51 | PM.CN ---
History of Present Illness Consult details Date Patient Seen: 12/28/20 Time Patient Seen: 08:51 Chief complaint: CONSTIPATION SINCE SURGERY 12/16, WEAKNESS Narrative: 80-year-old male admitted to the hospital for an upper GI bleed. He had a recent knee replacement has been taking aspirin as well as ibuprofen. He developed some epigastric discomfort associated with melanotic stool. On arrival to the emergency room he is hemodynamically stable. Hematocrit 21 on arrival 38 baseline. He has never had a previous peptic ulcer. Meds Home Medications and Allergies Home Medications Medication Instructions Recorded Confirmed Type Vitamin D3 2,000 iu PO Q DAY #0 02/12/12 12/27/20 History omega-3 fatty acids [Fish Oil] 1,000 mg PO DAILY #0 02/12/12 12/27/20 History losartan 100 mg PO QDAY #90 tab 11/30/16 12/27/20 Rx atorvastatin [Lipitor] 40 mg PO HS #90 tab 05/16/17 12/27/20 Rx finasteride 5 mg PO QDAY #90 tab 05/16/17 12/27/20 Rx fluticasone propionate 2 spray INTRANASAL DAILY 12/09/20 12/27/20 History multivitamin 1 tab PO DAILY 12/09/20 12/27/20 History ibuprofen 400 mg PO Q4HR #60 tab 12/17/20 12/27/20 Rx oxycodone 5 mg PO Q3HR PRN #40 tab 12/17/20 12/27/20 Rx doxazosin 2 mg PO BEDTIME 12/27/20 12/27/20 History Allergies Allergy/AdvReac Type Severity Reaction Status Date / Time No Known Drug Allergies Allergy Verified 12/16/20 13:13 Review of Systems Review of Systems ROS: Yes All systems reviewed with the patient and are negative except as otherwise documented Exam Vital Signs (past 8 hours): - 12/28/20 04:58 Temperature 97.3 F L Pulse Rate 76 Respiratory Rate 16 Blood Pressure 145/56 H Pulse Oximetry 99 Oxygen Delivery Method Room Air Oxygen Flow Rate 0 Narrative Exam Narrative: GENERAL-well developed elderly male, no acute distress HEENT-no scleral icterus, hearing intact NECK-no JVD, trachea midline CVS- regular rate, no peripheral edema RESP-unlabored respiratory effort, no audible wheezing GI-soft, nontender nondistended MSK-no cyanosis or clubbing, extremities without deformity SKIN-warm, dry NEURO-alert and oriented, no focal deficits PYSCH-Appropriate mood and affect Objective Labs Result Diagrams: 12/28/20 04:45 12/28/20 04:45 Labs: Laboratory Results - last 24 hr 12/27/20 12/27/20 12/27/20 10:30 10:30 10:30 WBC 17.3 H RBC 2.34 L Hgb 7.5 L Hct 21.4 L MCV 91.4 MCH 31.9 MCHC 34.9 RDW 13.8 Plt Count 313 Neut % (Auto) 88.9 H Lymph % (Auto) 4.8 L Colbert % (Auto) 6.2 Eos % (Auto) 0.0 L Baso % (Auto) 0.1 Neut # (Auto) 12639 H Lymph # (Auto) 800 L Colbert # (Auto) 1100 H Eos # (Auto) 0 Baso # (Auto) 0 PT INR APTT Sodium Potassium Chloride Carbon Dioxide BUN Creatinine Estimated GFR BUN/Creatinine Ratio Glucose Lactate 1.1 Calcium Total Bilirubin AST ALT Alkaline Phosphatase Total Creatine Kinase CK-MB (CK-2) CK-MB (CK-2) Rel Index Troponin I Total Protein Albumin Globulin Albumin/Globulin Ratio Lipase 84 Urine Color Urine Appearance Urine pH Ur Specific [place] Urine Protein Urine Glucose (UA) Urine Ketones Urine Occult Blood Urine Nitrate Urine Bilirubin Urine Urobilinogen Ur Leukocyte Esterase Urine RBC Urine WBC Urine Bacteria Ur Culture Indicated? Micro UA Comment SARS-CoV-2 (PCR) Blood Type Antibody Screen Crossmatch 12/27/20 12/27/20 12/27/20 10:30 10:30 10:30 WBC RBC Hgb Hct MCV MCH MCHC RDW Plt Count Neut % (Auto) Lymph % (Auto) Colbert % (Auto) Eos % (Auto) Baso % (Auto) Neut # (Auto) Lymph # (Auto) Colbert # (Auto) Eos # (Auto) Baso # (Auto) PT 13.3 H INR 1.2 APTT 26 L Sodium 131 L Potassium 4.5 Chloride 104 Carbon Dioxide 20 L BUN 42 H Creatinine 1.02 Estimated GFR > 60.0 BUN/Creatinine Ratio 41.2 H Glucose 122 H Lactate Calcium 8.9 Total Bilirubin 0.3 AST 48 ALT 48 Alkaline Phosphatase 70 Total Creatine Kinase 80 CK-MB (CK-2) TNP CK-MB (CK-2) Rel Index TNP Troponin I 0.015 Total Protein 5.9 L Albumin 3.3 L Globulin 2.6 Albumin/Globulin Ratio 1.3 Lipase Urine Color Urine Appearance Urine pH Ur Specific [place] Urine Protein Urine Glucose (UA) Urine Ketones Urine Occult Blood Urine Nitrate Urine Bilirubin Urine Urobilinogen Ur Leukocyte Esterase Urine RBC Urine WBC Urine Bacteria Ur Culture Indicated? Micro UA Comment SARS-CoV-2 (PCR) Blood Type Antibody Screen Crossmatch 12/27/20 12/27/20 12/27/20 11:00 11:35 14:20 WBC RBC Hgb Hct MCV MCH MCHC RDW Plt Count Neut % (Auto) Lymph % (Auto) Colbert % (Auto) Eos % (Auto) Baso % (Auto) Neut # (Auto) Lymph # (Auto) Colbert # (Auto) Eos # (Auto) Baso # (Auto) PT INR APTT Sodium Potassium Chloride Carbon Dioxide BUN Creatinine Estimated GFR BUN/Creatinine Ratio Glucose Lactate Calcium Total Bilirubin AST ALT Alkaline Phosphatase Total Creatine Kinase CK-MB (CK-2) CK-MB (CK-2) Rel Index Troponin I Total Protein Albumin Globulin Albumin/Globulin Ratio Lipase Urine Color Yellow Urine Appearance Clear Urine pH 5.0 Ur Specific [place] 1.020 Urine Protein Negative Urine Glucose (UA) Negative Urine Ketones Negative Urine Occult Blood Negative Urine Nitrate Negative Urine Bilirubin Negative Urine Urobilinogen 0.2 Ur Leukocyte Esterase Negative Urine RBC None seen Urine WBC None seen Urine Bacteria None seen Ur Culture Indicated? Cult not indicated Micro UA Comment Microscopic normal SARS-CoV-2 (PCR) Negative Blood Type O Positive Antibody Screen Negative Crossmatch See Detail 12/27/20 12/28/20 12/28/20 19:45 04:45 04:45 WBC 12.4 H 9.0 RBC 2.71 L 2.63 L Hgb 8.3 L 8.2 L Hct 23.8 L 23.3 L MCV 87.8 D 88.5 MCH 30.7 31.1 MCHC 34.9 35.2 RDW 15.7 H 16.1 H Plt Count 238 243 Neut % (Auto) 76.9 H Lymph % (Auto) 12.7 L Colbert % (Auto) 9.5 Eos % (Auto) 0.5 L Baso % (Auto) 0.4 Neut # (Auto) 6900 Lymph # (Auto) 1100 Colbert # (Auto) 900 Eos # (Auto) 0 Baso # (Auto) 0 PT INR APTT Sodium 133 L Potassium 3.9 Chloride 108 H Carbon Dioxide 22 BUN 25 H Creatinine 0.94 Estimated GFR > 60.0 BUN/Creatinine Ratio 26.6 H Glucose 102 Lactate Calcium 8.4 Total Bilirubin AST ALT Alkaline Phosphatase Total Creatine Kinase CK-MB (CK-2) CK-MB (CK-2) Rel Index Troponin I Total Protein Albumin Globulin Albumin/Globulin Ratio Lipase Urine Color Urine Appearance Urine pH Ur Specific [place] Urine Protein Urine Glucose (UA) Urine Ketones Urine Occult Blood Urine Nitrate Urine Bilirubin Urine Urobilinogen Ur Leukocyte Esterase Urine RBC Urine WBC Urine Bacteria Ur Culture Indicated? Micro UA Comment SARS-CoV-2 (PCR) Blood Type Antibody Screen Crossmatch Assessment & Plan Assessment & Plan narrative: 80-year-old male hemodynamically stable with a suspected upper GI bleed from NSAIDs. Recommend that we proceed with a esophagoduodenoscopy to evaluate for any source of active hemorrhage. Technical details of procedure were discussed with the patient. Procedural risks including bleeding, infection, intestinal perforation, need for further procedure, need for major abdominal surgery were discussed. His questions have been answered he is in agreement with this plan. To be performed under general anesthesia.
--- NOTE | 2020-12-28 09:09 | PM.PREOP ---
Pre-operative Note Interval Note History & Physical reviewed/Exam performed by Physician: Yes Changes to H&P: No
--- NOTE | 2020-12-28 09:29 | PM.OP.ENDO ---
Operative Date/Time/Diagnoses Date of procedure: 12/28/20 Time of procedure: 09:29 Pre-op diagnosis: Upper GI bleed Post-op diagnosis: same Procedure & Clinicians Study performed: Esophagoduodenoscopy Same procedure as scheduled: Yes Indications: Hemodynamically stable male with anemia and melena Surgeon: Juan Carlos Renner Procedure Notes Procedure in detail: Patient placed in left lateral decubitus position. Time out was performed. Procedural sedation was administered By Anesthesia A bite block was placed. the scope was inserted into the mouth and advanced through the esophagus and into the stomach. Stomach was notable for gastritis. No karen ulcer or active hemorrhage. The pylorus was intubated and the duodenum was notable for duodenitis no karen ulcer or active hemorrhage. A biopsy of the duodenum with forceps was performed. The scope was retroflexed within the stomach and there was a Moderate size hiatal hernia. The scope was withdrawn into the esophagus which was normal in its appearance, the Z line was seen at 40 cm from the incisions. There was no Mann's esophagitis or masses or strictures. Stomach was desufflated and scope removed. Patient tolerated procedure well. Specimen(s): other (Duodenum) Complications: none Impression: Gastritis, duodenitis Post-procedure Recommendations: Continue medication(s) (Omeprazole) Disposition: Acute Care
--- NOTE | 2020-12-28 10:03 | SUR.PHASEI ---
Addendum entered by Patsy Boyce R.N. 12/28/20 10:04: Call light given. No questions from RN, MUD CLEANER OPERATOR, or . Original Note: 0950 to room 212, patient stood to transfer into his bed. present. Pt alert, oriented, denies pain/nausea; anxious to eat (which he had been verbalizing in PACU). Stable.
--- NOTE | 2020-12-28 11:17 | CM.DANOTE ---
DCP ASSESSMENT: Patient is an 80 year-old male admitted to hospital with constipation since surgery on 12/15 and weakness. PCP is Magdy Parr. 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 reported he has been doing well after surgery attending 1-2 outpatient physical therapy appointments per week. Patient is independent with ADL?s he has a FWW in room. Patient also uses cane prn. At this time there are no anticipated d/c planning needs. reports that patient has been doing very well since left TKA with Dr. Gates. Patient resides on [place] and will need priority boarding pass at discharge, RN notified. Per Dr. Iglesias in AM rounds if H&H stable patient will discharge home today. Patient required 2 units of PRBC yesterday. Spouse reports that issues started after patient starting taking ibuprofen after surgery. PLAN: Anticipate home when medically stable. CM Team to continue to follow. FRANCI Saleh MSW Student Discharge Planning/Care Management Advanced directive, confirm from FAMILY Start: 12/27/20 12:52 Freq: Q24H Status: Active Protocol: Document 12/27/20 12:52 KL (Rec: 12/27/20 14:06 [facility] [id number]) Advance Directive, confirm on record Time 14:06 Person contacted Hussein Fitzgeraldling Copy received No CM Discharge Assessment Start: 12/28/20 10:09 Freq: Status: Active Protocol: Document 12/28/20 10:09 [place] (Rec: 12/28/20 10:15 [place] [id number]) Discharge Planning Assessment Assigned Medical Parasitologist FRANCI Galindo Student Contact Information Tiny Hollins, [phone] Advance Directives? Yes History Provided By Patient,Family Member,Medical Record Has Patient been admitted in last 30 Yes days? Comment 12/17 LTKA Prior Living Arrangements House Household Members spouse Type of transporation used prior to Relies on Others admit Comment Currently relies on Independent with ADL's Yes Is patient alert and oriented? Yes Caregiver for Another No Comment Uses a hiking stick for walking long distances Patient/Family Preference OP PT Therapy Comment Patient has been attending OP PT on [place] Barriers to Discharge No Discharge Plan Home Transportation Arrangement Spouse Referrals Initiated None needed Whiteboard Updated in Patient Room with Yes name and ext. # of Medical Parasitologist Review Status In Process
[2020-12-28 12:19] LABS: Hematocrit 25.8 % (41-53); Hemoglobin 8.9 g/dL (13.5-17.5)
[2020-12-28] MEDS: PANTOPRAZOLE 40 MG VIAL IV (12:24)
--- NOTE | 2020-12-28 12:51 | P.DS_ITS ---
History of Present Illness History of Present Illness Date Patient Seen: 12/28/20 Time Patient Seen: 12:51 Chief complaint: CONSTIPATION SINCE SURGERY 12/16, WEAKNESS Narrative: Per Dr. Stahl, Mr. Hollins is an 80M with PMH of HTN, and recent left TKA who is coming in today with blood in his stool. He notes that he did well with surgery and was discharged on 12/17. He has been taking 400mg 3-4x/day since discharge for pain, and two baby aspirin for prophylaxis after his surgery. He has not been taking these with food. He began developing some burning discomfort in his stomach as if he had upset stomach. He then noticed he was developing some generalized weakness and fatigue. He initially had constipation after surgery but then developed overnight black mushy stool with some dark red blood. He called EMS, he has since had two similar stools that were slightly formed that were still black and with dark blood. He did develop some slight shortness of breath with exertion. He had no chest pain. He did have dizziness. He had no fevers/chills, cough, dysuria. Because of this he presented to the ER. His vitals were notable for initially mild tachycardia in the 100s-110s. Blood pressure normal. Labs were done and were notable for wbc of 17.3, hgb 7.5 from 12.9 on 12/17, plts 313, INR 1.2. Na 131, creatinine 1.02. Rectal was noted for positive hemoccult dark stool. He was ordered for IV protonix, and ordered for transfusion of 2U PRBC. He was admitted for further treatment. Discharge Providers Provider Date of admission: 12/27/20 12:27 Discharge Date: 12/28/20 Primary care physician: Magdy Parr MD Discharge provider: Matteo Iglesias DO Summary Hospital Course Discharge Diagnosis: 1. Acute blood loss anemia, present on admission 2. Gastritis and duodenitis, secondary to NSAID use, acute present on admission 3. HTN, chronic 4. BPH, chronic Hospital Course: This is an 80-year-old male admitted to the hospital with upper GI bleeding and symptomatic anemia. Patient had initial hemoglobin of 7.5 on admission from 13 the week before. He was given 2 units of packed red blood cells with improvement in his symptoms but an initial inadequate response with a hemoglobin improvement to only 8.2 after transfusion. The morning after admission the patient underwent endoscopy with General surgery, Dr. Renner. Endoscopy was notable for gastritis and duodenitis but showed no active bleeding. The patient had some melanotic appearing stools during the course of his admission. However the afternoon after admission, given that the patient was tolerating a diet, and his hemoglobin had improved to 8.9 in the early afternoon, the patient was discharged home to continue oral Protonix twice a day and was recommended to stop taking ibuprofen. He should further avoid aspirin as well in the near future. Status at Discharge Cognitive/behavioral status at discharge: oriented Exam Vital Signs (past 8 hours): - 12/28/20 04:58 12/28/20 09:31 12/28/20 09:36 Temperature 97.3 F L 99.7 F H Pulse Rate 76 70 77 Respiratory Rate 16 18 15 Blood Pressure 145/56 H 120/56 L 126/59 L Pulse Oximetry 99 95 96 12/28/20 09:41 12/28/20 09:47 12/28/20 10:08 Temperature 97.5 F L Pulse Rate 70 69 79 Respiratory Rate 15 17 17 Blood Pressure 122/54 L 126/56 L 140/56 L Pulse Oximetry 98 97 Oxygen Delivery Method Room Air Oxygen Flow Rate 0 Narrative Exam Narrative: GENERAL-well developed elderly male, no acute distress HEENT-no scleral icterus, hearing intact NECK-no JVD, trachea midline CVS- regular rate, no peripheral edema RESP-unlabored respiratory effort, CTA b/l without wheezing, rhonchi,rales. GI-soft, nontender nondistended MSK-no cyanosis or clubbing, extremities without deformity SKIN-warm, dry no rashes NEURO-alert and oriented, no focal deficits PYSCH-Appropriate mood and affect Objective Labs Result Diagrams: 12/28/20 11:55 12/28/20 04:45 Labs: Laboratory Results - last 24 hr 12/27/20 12/27/20 12/27/20 11:35 14:20 19:45 WBC 12.4 H RBC 2.71 L Hgb 8.3 L Hct 23.8 L MCV 87.8 D MCH 30.7 MCHC 34.9 RDW 15.7 H Plt Count 238 Neut % (Auto) Lymph % (Auto) [place] % (Auto) Eos % (Auto) Baso % (Auto) Neut # (Auto) Lymph # (Auto) [place] # (Auto) Eos # (Auto) Baso # (Auto) Sodium Potassium Chloride Carbon Dioxide BUN Creatinine Estimated GFR BUN/Creatinine Ratio Glucose Calcium Urine Color Yellow Urine Appearance Clear Urine pH 5.0 Ur Specific [place] 1.020 Urine Protein Negative Urine Glucose (UA) Negative Urine Ketones Negative Urine Occult Blood Negative Urine Nitrate Negative Urine Bilirubin Negative Urine Urobilinogen 0.2 Ur Leukocyte Esterase Negative Urine RBC None seen Urine WBC None seen Urine Bacteria None seen Ur Culture Indicated? Cult not indicated Micro UA Comment Microscopic normal Blood Type O Positive Antibody Screen Negative Crossmatch See Detail 12/28/20 12/28/20 12/28/20 04:45 04:45 11:55 WBC 9.0 RBC 2.63 L Hgb 8.2 L 8.9 L Hct 23.3 L 25.8 L MCV 88.5 MCH 31.1 MCHC 35.2 RDW 16.1 H Plt Count 243 Neut % (Auto) 76.9 H Lymph % (Auto) 12.7 L [place] % (Auto) 9.5 Eos % (Auto) 0.5 L Baso % (Auto) 0.4 Neut # (Auto) 6900 Lymph # (Auto) 1100 [place] # (Auto) 900 Eos # (Auto) 0 Baso # (Auto) 0 Sodium 133 L Potassium 3.9 Chloride 108 H Carbon Dioxide 22 BUN 25 H Creatinine 0.94 Estimated GFR > 60.0 BUN/Creatinine Ratio 26.6 H Glucose 102 Calcium 8.4 Urine Color Urine Appearance Urine pH Ur Specific [place] Urine Protein Urine Glucose (UA) Urine Ketones Urine Occult Blood Urine Nitrate Urine Bilirubin Urine Urobilinogen Ur Leukocyte Esterase Urine RBC Urine WBC Urine Bacteria Ur Culture Indicated? Micro UA Comment Blood Type Antibody Screen Crossmatch [facility] Medical History Benign prostatic hyperplasia Cancer of skin History of radiation therapy Hyperlipidemia Hypertension Osteoarthritis of left knee RBBB Sinus bradycardia Surgical History H/O bilateral cataract extraction (~2011) Status post appendectomy Family History Father Heart disease Social History household members: spouse Smoking Status: Never smoker alcohol intake: current Discharge Plan Discharge Plan Patient Disposition: Home Provider Discharge Comment: You were admitted to the hospital with stomach bleeding. You had an endoscopy which showed mild gastritis and duodenitis which is inflammation of the stomach and small bowel. This is common after taking NSAIDs like ibuprofen. I recommend that you continue to check your blood pressure at home and restart the losartan if your blood pressure is elevated. It may be lower in the short term due to your anemia. Please follow-up with your primary care provider within the next 2 weeks. Discharge orders & Medications Prescriptions: New pantoprazole 40 mg tablet,delayed release (DR/EC) 40 mg PO BID 30 Days Qty: 60 RF: 0 Continued omega-3 fatty acids Capsule 1,000 mg PO DAILY Qty: 0 RF: 0 Vitamin D3 2,000 iu PO Q DAY Qty: 0 RF: 0 atorvastatin [Lipitor] 40 MG tablet 40 mg PO HS Qty: 90 RF: 1 finasteride 5 MG tablet 5 mg PO QDAY Qty: 90 RF: 1 multivitamin Tablet 1 tab PO DAILY RF: 0 fluticasone propionate 50 mcg/actuation [place],Suspension 2 spray INTRANASAL DAILY RF: 0 oxycodone 5 mg Tablet 5 mg PO Q3HR PRN (Reason: Pain, Moderate (4-6)) Qty: 40 RF: 0 doxazosin 2 mg Tablet 2 mg PO BEDTIME RF: 0 Discontinued losartan 100 MG tablet 100 mg PO QDAY Qty: 90 RF: 1 ibuprofen 400 mg Tablet 400 mg PO Q4HR Qty: 60 RF: 0 Follow up/Referrals: Magdy Parr MD [Primary Care Provider] - Diet/Activity/Treatments Diet: Diet as Tolerated Activity: As tolerated Discharge Data Primary Care Provider: Magdy Parr Quality VTE Deep Vein Thrombosis/Pulmonary Embolism Present on Admission: No
--- NOTE | 2020-12-28 14:06 | PC.NURSE ---
Pt A&O x3, ambulating with SBA using FWW steady gait. Aquacell to LLE C/D/I +CMS to BLE's, trace edema to LLE. LS CTA. VSS, afebrile. Pt denies n/v. NPO for EGD completed today. Reports x1 loose BM this a.m. and x1 this afternoon dark brown color. Upon return from EGD pt cleared for general diet, and tolerated meal well. BS + x4, LSS CTA NSR, BBB on telemetry. at bedside with patient. MD clearing patient for discharge back to [place] this afternoon after receiving po protonix. Patient verbalizes understanding of discharge medications, activity,and follow up instructions. Escorted by RN to private vehicle with and all of belongings, prescriptions escribed to pharmacy.
[2020-12-28] MEDS: PANTOPRAZOLE 40 MG TABLET PO (15:11)
== END 2020-12-28 15:14 | disposition home or self-care (01) | DRG 378 ==
LOC: ED 11:44 → AC 12-28 07:42
PROVIDERS: Internal Medicine; Surgery; Admitting Provider Internal Medicine; Emergency Provider Emergency Medicine; Family Provider Family Medicine; PCP Family Medicine; Referring Provider Emergency Medicine; Visit Provider Internal Medicine
PROC: 0DJ08ZZ Inspection of Upper Intestinal Tract, Via Natural or Artificial Opening Endoscopic (ICD-10-PCS; CPT 43235; principal; 2020-12-28 08:30)
DX: K29.71 Gastritis, unspecified, with bleeding (principal); D62 Acute posthemorrhagic anemia; K29.81 Duodenitis with bleeding; D72.829 Elevated white blood cell count, unspecified; T39.395A Adverse effect of other nonsteroidal anti-inflammatory drugs [NSAID], initial encounter; E78.5 Hyperlipidemia, unspecified; I10 Essential (primary) hypertension; N40.0 Benign prostatic hyperplasia without lower urinary tract symptoms; Z20.822 Contact with and (suspected) exposure to COVID-19; K44.9 Diaphragmatic hernia without obstruction or gangrene
CPT/HCPCS: 36415; 36430; 71045; 80048; 80053; 81001; 82550; 83605; 83690; 84484; 85014; 85018; 85025; 85027; 85610; 85730; 86850; 86900; 86901; 87635; 99284; C9803; P9016; C9113; J2250; J2704; J3010